=== PATIENT | female | born 1980 | race Caucasian/White ===

== ENCOUNTER → 2023-05-14 16:57 | Outpatient (REF) | payer BC, SELFPAY ==
[2023-05-14 18:09] LABS: ALT (SGPT) 20 U/L (0-35); AST (SGOT) 19 U/L (14-36); Albumin 4.2 g/dl (3.5-5.0); Alkaline Phosphatase 48 U/L (38-126); Blood Urea Nitrogen 18 mg/dl (7-17); Calcium 9.4 mg/dl (8.4-10.2); Carbon Dioxide 29 mmol/L (22-30); Chloride 100 mmol/L (98-107); Glucose 96 mg/dl (70-99); HDL Cholesterol 62 mg/dl; LDL Cholesterol, Calculated 87 mg/dl; Potassium 3.7 mmol/L (3.5-5.1); Sodium 138 mmol/L (135-145); Total Bilirubin 0.6 mg/dl (0.2-1.3); Total Cholesterol 158 mg/dl (50-199); Total Protein 7.2 g/dl (6.3-8.2); Triglyceride 47 mg/dl (10-149); Very Low Density Lipoprotein 9 mg/dl (0-30); eGFR > 60.00
[2023-05-14 18:40] LABS: TSH Reflex To Free T4 1.29 uIU/ml (0.47-4.68)
== END ==
LOC: REG 16:57
PROVIDERS: ATTENDING PHYSICIAN Family Medicine
DX: Z00.00 Encounter for general adult medical examination without abnormal findings (principal); Z13.220 Encounter for screening for lipoid disorders; Z13.29 Encounter for screening for other suspected endocrine disorder
CPT/HCPCS: 36415; 80053; 80061; 84443

== ENCOUNTER → 2023-05-16 07:00 | Outpatient (REF) | payer BC, SELFPAY | LOC: WDC 07:00 | PROVIDERS: ATTENDING PHYSICIAN Internal Medicine | DX: Z12.31 Encounter for screening mammogram for malignant neoplasm of breast (principal) | CPT/HCPCS: 77063; 77067 ==

== ENCOUNTER → 2023-10-16 06:26 | Day surgery (SDC) | payer BC, SELFPAY | LOC: GI 06:26 | PROVIDERS: ATTENDING PHYSICIAN Internal Medicine | DX: Z12.11 Encounter for screening for malignant neoplasm of colon (principal); D12.2 Benign neoplasm of ascending colon; K63.5 Polyp of colon; K56.2 Volvulus; K64.9 Unspecified hemorrhoids | CPT/HCPCS: 45385; 88305 ==

== ENCOUNTER → 2024-06-05 07:00 | Outpatient (REF) | payer BC, SELFPAY | LOC: WDC 07:00 | PROVIDERS: ATTENDING PHYSICIAN Family Medicine | DX: Z12.31 Encounter for screening mammogram for malignant neoplasm of breast (principal) | CPT/HCPCS: 77063; 77067 ==

== ENCOUNTER → 2024-09-28 09:45 | Outpatient (REF) | payer BC, SELFPAY ==
[2024-09-28 11:18] LABS: % Basophils 0.9 % (0-2); % Eosinophils 1.1 % (0-6); % Immature Granulocytes 0.2 % (0-0.5); % Lymphocytes 27.3 % (20.5-51.1); % Monocytes 7.6 % (1.7-9.3); % Neutrophils 62.9 % (42.2-75.2); Absolute Eosinophils 0.1 10^3/uL (0-0.7); Absolute Lymphocytes 1.3 10^3/uL (1.2-3.4); Absolute Monocytes 0.4 10^3/uL (0.1-0.6); Absolute Neutrophils 2.9 10^3/uL (1.4-6.5); Hematocrit 37.8 % (37.0-47.0); Hemoglobin 13.1 g/dL (12.0-16.0); Mean Corp Hgb Conc. 34.7 g/dL (33.0-37.0); Mean Corpuscular Hgb 32.3 pg (27.0-31.0); Mean Corpuscular Volume 93.3 fL (81.0-99.0); Nucleated Red Blood Cells % 0 %; Platelet Count 190 10^3/uL (130-400); Red Blood Cell Count 4.05 10^6/uL (4.20-5.40); Red Cell Dist. Width 12.6 % (11.5-14.5); White Blood Cell Count 4.6 10^3/uL (4.8-10.8)
[2024-09-28 12:44] LABS: Glycohemoglobin (HgbA1c) 4.9 % (4.0-5.6)
[2024-09-28 15:56] LABS: ALT (SGPT) 19 U/L (0-35); AST (SGOT) 19 U/L (14-36); Albumin 4.4 g/dl (3.5-5.0); Alkaline Phosphatase 58 U/L (38-126); Blood Urea Nitrogen 14 mg/dl (7-17); Calcium 9.2 mg/dl (8.4-10.2); Carbon Dioxide 29 mmol/L (22-30); Chloride 107 mmol/L (98-107); Glucose 90 mg/dl (70-99); HDL Cholesterol 58 mg/dl; Iron 80 ug/dl (37-170); LDL Cholesterol, Calculated 96 mg/dl; Potassium 4.6 mmol/L (3.5-5.1); Sodium 139 mmol/L (135-145); Total Bilirubin 0.5 mg/dl (0.2-1.3); Total Cholesterol 162 mg/dl (50-199); Total Protein 7.5 g/dl (6.3-8.2); Triglyceride 42 mg/dl (10-149); Very Low Density Lipoprotein 8 mg/dl (0-30); eGFR > 60.00
[2024-09-28 16:07] LABS: Percent Saturation 26 % (20-50); Total Iron Binding Capacity 306 ug/dl (265-497)
[2024-09-28 16:22] LABS: TSH Reflex To Free T4 1.65 uIU/ml (0.47-4.68)
[2024-09-28 16:27] LABS: Ferritin 23.7 ng/ml (6.24-137)
[2024-09-28 16:42] LABS: Vitamin B12 463 pg/ml (239-931)
[2024-09-28 21:41] LABS: IgA 219 mg/dl (70-400)
[2024-09-28 22:21] LABS: Hepatitis C Antibody Negative (Negative)
[2024-09-29 13:36] LABS: HIV Combo Negative (Negative)
[2024-09-30 14:18] LABS: tTG IgA Antibody 3.6 EU/ml (0-19); tTG IgG Antibody 9.6 EU/ml (0-19)
== END ==
LOC: RAD 09:45
PROVIDERS: ATTENDING PHYSICIAN Internal Medicine; FAMILY PHYSICIAN Family Medicine
DX: R09.82 Postnasal drip (principal); N92.1 Excessive and frequent menstruation with irregular cycle; G25.81 Restless legs syndrome; F41.1 Generalized anxiety disorder; R53.83 Other fatigue; Z11.59 Encounter for screening for other viral diseases; Z11.4 Encounter for screening for human immunodeficiency virus [HIV]; Z13.220 Encounter for screening for lipoid disorders; Z68.28 Body mass index [BMI] 28.0-28.9, adult; R09.A2 Foreign body sensation, throat
CPT/HCPCS: 36415; 74221; 80053; 80061; 82607; 82728; 82784; 83036; 83516; 83540; 83550; 84443; 85025; 86231; 86803; 87389

== ENCOUNTER 2024-11-16 06:24 | Day surgery (SDC) | payer BC, SELFPAY | END 2024-11-16 15:02 | disposition home or self-care (01) | LOC: GI 06:24 | PROVIDERS: ATTENDING PHYSICIAN Internal Medicine | DX: R13.10 Dysphagia, unspecified (principal); K22.4 Dyskinesia of esophagus; K22.89 Other specified disease of esophagus; R09.A2 Foreign body sensation, throat | CPT/HCPCS: 43239; 88305; 88342 ==